=== PATIENT | male | born 1980 | race Caucasian/White ===

== ENCOUNTER 2025-02-18 13:02 | Emergency (ER) | payer OTHER, SELFPAY ==
[2025-02-18 13:03] VITALS: BP 110/86; PULSE 93; RESP 16; TEMP 36.8; O2SAT 100; BMI 22.5
--- NOTE | 2025-02-18 13:30 | RAD_ITS ---
PROCEDURE: KNEE 1 OR 2 VIEWS 02/18/2025 REASON FOR EXAM: LACERATION BY CHAINSAW TECHNIQUE: Procedure Code: RADK Modality: DX Procedure: KNEE 1 OR 2 VIEWS Laterality: Right COMPARISON: None FINDINGS: Bones: Negative for fracture. Distal femur negative. Distal tibia and fibula negative. Joints: Negative for joint space narrowing. Effusion: Negative for joint effusion. Soft tissue: Laceration of the suprapatellar aspect of the right knee. No radiopaque foreign body. Negative for soft tissue swelling. Other: Remainder of the exam negative. RAD/Knee 1 or 2 Views IMPRESSION: Right knee laceration. Reading Location: [id number]
--- NOTE | 2025-02-18 13:33 | EX.ED.GENINJ ---
HPI History of Present Illness Chief Complaint: Trauma Narrative Narrative: Patient is a 45-year-old male with no known significant past medical history presents to the emergency department chief complaint of cut to his right leg. He states that he was cutting down a tree when the chainsaw kicked back and cut his leg. He states that he is able to ambulate and does not have much pain. States that his significant other made him come here to be evaluated he states that he is unsure when his last tetanus shot was. PFSH PFSH Allergy/AdvReac Type Severity Reaction Status Date / Time No Known Allergies Allergy Verified 02/18/25 13:07 Social History Smoking Status: Never smoker ROS ROS ED ROS Narrative Neurological: Denies any numbness, weakness, tingling Musculoskeletal: Complains of minimal pain to the right knee Skin: Complains of a laceration of the right knee from a chainsaw as noted above EXAM Physical Exam Narrative Exam Narrative: General: Patient lying in bed rest comfortably did not appear to be acute distress Head: Atraumatic, normocephalic Eyes: PERRL bilaterally, EOMI bilaterally, no conjunctival injection noted Neck: Soft, supple, trachea midline Cardiovascular: Regular rate and rhythm Musculoskeletal: Right thigh soft and compressible no large hematoma noted, right lower extremity compartments soft and compressible Extremities: DP pulses +2/4 in the right lower extremity, +5/5 strength noted in bilateral, extremities Neurological: Patient on commands knew he was at [facility] year is 2024. Sensation grossly intact in the right lower extremity when compared to the left Skin: Patient has approximately a 5-1/2 to 6 cm laceration over the right thigh just proximal to his right knee no active bleeding noted Const Vital Signs: 02/18/25 13:03 Temperature 98.2 F Temperature Source Oral Pulse Rate 93 Respiratory Rate 16 Blood Pressure 110/86 H Blood Pressure Mean 94 Pulse Ox 100 Oxygen Delivery Method Room Air MDM MDM MDM Narrative Medical decision making narrative: Patient is a 45-year-old male who presented to the emergency department chief complaint of laceration to his right leg after a chainsaw kicked back from cutting a tree down and cut his leg. On the differential diagnose includes but limited to retained foreign body, fracture, laceration. Patient tetanus shot will be updated. Patient x-ray of his knee reviewed by myself by radiology showed right knee laceration no fractures no foreign bodies. Patient had a laceration repaired here in the emergency department see procedure note for separate details. He was advised to watch out for signs of infection such as purulent drainage surrounding redness if this is to occur he was advised that he should return to the emergency department or see his doctor. He is advised to have his sutures removed in approximately 7 to 10 days. He was advised to not soak these. He is agreeable this plan all course concerns answered he is discharged home in stable condition. Procedure note Procedure name: Laceration repair Indication: Reduce risk of infection Location: 6 cm laceration linear just proximal to the right knee no active bleeding Preprocedure diagnosis: Laceration Postprocedure diagnosis: Repaired laceration Informed consent was obtained prior to procedure started. Procedure: The appropriate timeout was taken. The area was prepped and draped in usual sterile fashion. Local anesthesia was achieved using 5 cc of lidocaine 1% without epinephrine. Wound was copiously irrigated. 6 4-0 Ethilon interrupted sutures were placed. Three 3-0 Ethilon interrupted sutures were placed to approximate the wound better Estimated blood loss was less than 0.5 mL. Dressing was applied to the area and anticipatory guidance, as well as standard postprocedure care was explained. Return precautions are given. Patient tolerated procedure well without any complications. Follow-up visit for suture removal and evaluation of laceration. Radiography Diagnostic Testing: Clinical Impression(s) from Imaging Studies Knee X-Ray 02/18/25 13:30 IMPRESSION: Right knee laceration. Reading Location: [id number] Discharge Plan Triage Chief Complaint: Trauma ED Provider: Pito Burgess Dx/Rx/DC Orders Clinical Impression: Laceration of thigh, Knee pain, right Primary Care Provider: Care Physician,No Primary Referrals: Trevor Peirre MD [Med Staff - Active Staff] - Care Physician,No Primary [Primary Care Provider] - Activity Restrictions/Additional Instructions: Watch for signs infection such as surrounding redness purulent drainage from the wound if this is to occur you should return to the emergency department. Have your sutures removed in approximately 7 to 10 days. Keep the area dry and clean you may shower and let warm soapy water run over the wound do not scrub them do not soak the sutures. Print Language: Greenlandic Disposition Disposition: Home, Self Care
[2025-02-18] MEDS: Lidocaine 1% (20 ml mdv) 20 ML Vial 10 ML INFILT (13:43)
[2025-02-18 14:55] VITALS: BP 117/75; PULSE 84; RESP 16; TEMP 36.7; O2SAT 100
== END 2025-02-18 14:56 | disposition home or self-care (01) ==
PROVIDERS: Emergency Provider Emergency Medicine; Visit Provider Emergency Medicine
DX: S71.111A Laceration without foreign body, right thigh, initial encounter (principal); M25.561 Pain in right knee; W29.3XXA Contact with powered garden and outdoor hand tools and machinery, initial encounter
CPT/HCPCS: 12002; 73560; 99284